=== PATIENT | female | born 2000 | race American Indian/Alaskan Native ===

== ENCOUNTER 2022-01-08 22:37 | Outpatient (CLI) | payer MEDICAID ==
[2022-01-08 22:57] VITALS: BP 119/70
[2022-01-08] MEDS ORDERED: LACTATED RINGERS 500 ML IV ONE (23:01)
[2022-01-08] MEDS ORDERED: LACTATED RINGERS 1,000 ML ONE (23:03)
== END 2022-01-09 00:20 | disposition home or self-care (01) ==
LOC: TRG 22:37 → APU 22:46 → TRG 01-09 00:20
PROVIDERS: ATTEND Obstetrics & Gynecology
DX: O62.9 Abnormality of forces of labor, unspecified (principal); O26.893 Other specified pregnancy related conditions, third trimester; R10.9 Unspecified abdominal pain; Z3A.36 36 weeks gestation of pregnancy
CPT/HCPCS: 59025; 96360